=== PATIENT | female | born 2000 | race Asian ===

== ENCOUNTER 2025-06-02 10:05 | Emergency (ER) | payer OTHER ==
[~2025-06-02] VITALS: Ht 167.6 cm; Wt 63.5 kg
[2025-06-02 10:24] VITALS: TEMP 98.6
[2025-06-02] MEDS ORDERED: PROCHLORPERAZINE EDISYLATE 10 MG/2 ML VIAL ONE (10:41)
[2025-06-02] MEDS: IV NS 0.9% 1,000 ML BAG IV ONE (10:50)
[2025-06-02] MEDS: PROCHLORPERAZINE EDISYLATE 10 MG/2 ML VIAL IVP STA (10:55)
[2025-06-02 11:15] LABS: PLATELET COUNT (AUTO) 336 K/uL (150-450); RED BLOOD CELL COUNT(AUTO) 4.82 MIL/uL (4.0-5.2); RED CELL DISTRIBUTION WIDTH 14.6 % (11.5-15.0); WHITE BLOOD COUNT (AUTO) 9.2 K/uL (4.3-11.0)
[2025-06-02 11:24] LABS: CALCIUM, SERUM 8.9 mg/dL (8.5-10.1); CREATININE 1.2 mg/dL (0.6-1.3); SODIUM SERUM 142.0 mmol/L (136-145); UREA NITROGEN, BLOOD 10.0 mg/dL (7-18)
[2025-06-02 12:52] VITALS: BP 117/65; O2SAT 99
== END 2025-06-02 12:53 | disposition home or self-care (01) ==
LOC: ER 10:18
DX: G43.909 Migraine, unspecified, not intractable, without status migrainosus (principal); F12.90 Cannabis use, unspecified, uncomplicated; R10.20 Pelvic and perineal pain unspecified side
CPT/HCPCS: 99285; 96374; 70450; 96361; 96375; 85025; 80048; 36415; 84702; J0780; J1200; J7030

== ENCOUNTER 2025-06-04 21:20 | Emergency (ER) | payer OTHER | END 2025-06-04 21:48 | disposition left against medical advice (07) | LOC: ER 21:32 | DX: R51.9 Headache, unspecified (principal); R11.10 Vomiting, unspecified; Z53.21 Procedure and treatment not carried out due to patient leaving prior to being seen by health care provider ==